=== PATIENT | male | born 1975 | race Caucasian/White ===

== ENCOUNTER → 2019-12-15 | Outpatient (CLI) | payer OTHER ==
[~2019-12-15] MED LIST: AMOXICILLIN/CLA1 TA1 PO; GENTAMICIN180 MG/502 NS; PROTONIX 40MG T40 MG PO
== END ==
LOC: COL.RAD 15:49
DX: M47.816 Spondylosis without myelopathy or radiculopathy, lumbar region (principal); M43.16 Spondylolisthesis, lumbar region; M54.30 Sciatica, unspecified side